=== PATIENT | female | born 1985 | race American Indian/Alaskan Native ===

== ENCOUNTER 2016-11-20 02:58 | Emergency (ER) | payer MEDICAID, OTHER ==
[2016-11-20 03:12] VITALS: BP 129/87; PULSE 83; RESP 20; TEMP 97.8; O2SAT 97
--- NOTE | 2016-11-20 03:38 | C.PDOC ---
History Of Present Illness 31 year old female presents to the ED with complaints of toothache in the right upper gum region and facial swelling for a "few days." Patient states she was schedule for a dental workup a few years ago but has been too afraid to go. She notes she has taken advil with some relief and denies trauma or fever. Time Seen by Provider: 11/20/16 03:27 Chief Complaint (Nursing): Dental Pain History Per: Patient History/Exam Limitations: no limitations Onset/Duration Of Symptoms: Days Current Symptoms Are (Timing): Still Present Severity: Mild Quality: Positive for: Aching Recent travel outside of the [place]: No Past Medical History Reviewed: Historical Data, Nursing Documentation, Vital Signs Vital Signs: Last Vital Signs Temp 97.8 F 11/20/16 03:09 Pulse 83 11/20/16 03:09 Resp 20 11/20/16 03:09 BP 129/87 11/20/16 03:09 Pulse Ox 97 11/20/16 05:42 - Medical History PMH: Bronchitis Family History: States: Unknown Family Hx - Social History Hx Tobacco Use: No Hx Alcohol Use: No Hx Substance Use: No - Immunization History Hx Tetanus Toxoid Vaccination: No Hx Influenza Vaccination: No Hx Pneumococcal Vaccination: No Review Of Systems Constitutional: Negative for: Fever ENT: Positive for: Other (toothache in right upper gum with facial swelling ). Negative for: Mouth Swelling, Throat Pain Musculoskeletal: Negative for: Neck Pain Neurological: Negative for: Headache Physical Exam - Physical Exam Appears: Non-toxic, No Acute Distress Skin: Warm, Dry Head: Atraumatic, Other (minimal right facial swelling in maxillary area ) Eye(s): bilateral: Normal Inspection, PERRL, EOMI Oral Mucosa: Moist, No Drooling, No Trismus Tongue: Normal Appearing, No Swelling, No Lesions, No Bite, No Fissured Lips: Normal Appearing, No Swelling, No Abrasion, No Lesions, No Erythema Teeth: Caries (moderate caries to lingual aspect of right upper molars, to buccal aspect of right premolar), No Edentulous, Tender To Palpation (right upper teeth), No Loose Gingiva: Erythema (to right upper gum ), Swelling (to right upper gum), No Abscess, Other (dental erosion to right upper pre-molar ) Throat: Normal, No Erythema Neck: Normal, Supple Neurological/Psych: Oriented x3 ED Course And Treatment O2 Sat by Pulse Oximetry: 97 (room air ) Medical Decision Making Medical Decision Making: Pt refused pain medications and understand to follow up with dentist- Pt agrees with plan and return precautions discussed Disposition Counseled Patient/Family Regarding: Diagnosis, Need For Followup, Rx Given - Disposition Referrals: Dental clinic, private or [facility] [Other] Disposition: HOME/ ROUTINE Disposition Time: 03:36 Condition: STABLE Additional Instructions: Please follow up with a dentist Take meds as directed Return to ER if worse Prescriptions: Ibuprofen [Motrin Tab] 800 mg PO QID #30 tab Penicillin VK [Pen-Vee K] 2 tab PO BID #28 tab Instructions: Dental Caries (ED), Gingivitis (ED) - Clinical Impression Clinical Impression: Dental caries, Gingivitis - Scribe Statement The provider has reviewed the documentation as recorded by the Sylvesteribduncan Andrews All medical record entries made by the Sylvesteribduncan were at my direction and personally dictated by me. I have reviewed the chart and agree that the record accurately reflects my personal performance of the history, physical exam, medical decision making, and the department course for this patient. I have also personally directed, reviewed, and agree with the discharge instructions and disposition.
== END 2016-11-20 03:42 | disposition home or self-care (01) ==
LOC: C.ER 02:58
DX: K02.9 Dental caries, unspecified (principal); K05.10 Chronic gingivitis, plaque induced

== ENCOUNTER 2017-05-18 02:12 | Emergency (ER) | payer OTHER ==
[2017-05-18 02:27] VITALS: RESP 20; TEMP 98; O2SAT 98
--- NOTE | 2017-05-18 02:55 | C.PDOC ---
History Of Present Illness 31 year old female presents to the ER with a complaint of 3 itching lesions to the lower back that have become painful today, associated with pruritus. Denies fever.These lesions are not tender or painful. She has never had anything similar. Patient has no PMHx expcet anxiety disorder, surgical Hx, known allergies, or Hx of smoking. Chief Complaint (Nursing): Abnormal Skin Integrity History Per: Patient History/Exam Limitations: no limitations Onset/Duration Of Symptoms: Days Current Symptoms Are (Timing): Still Present Location Of Injury: Posterior: Back Quality Of Symptoms: Painful, Itching Severity: Mild Pain Scale Rating Of: 0 Recent travel outside of the [place]: No Additional History Per: Patient Past Medical History Reviewed: Historical Data, Nursing Documentation, Vital Signs Vital Signs: Last Vital Signs Temp 98 F 05/18/17 02:23 Pulse 83 05/18/17 02:23 Resp 20 05/18/17 02:23 BP 135/97 H 05/18/17 02:23 Pulse Ox 98 05/18/17 03:40 - Medical History PMH: Anxiety, Bronchitis Surgical History: No Surg Hx Family History: States: Unknown Family Hx - Social History Hx Tobacco Use: No Hx Alcohol Use: No Hx Substance Use: No - Immunization History Hx Tetanus Toxoid Vaccination: No Hx Influenza Vaccination: No Hx Pneumococcal Vaccination: No Review Of Systems Constitutional: Negative for: Fever, Chills Eyes: Positive for: Conjunctivae Inflammation, Redness. Negative for: Pain ENT: Negative for: Ear Pain Cardiovascular: Negative for: Chest Pain, Paroxysmal Noc. Dyspnea, Edema, Light Headedness Respiratory: Negative for: Cough, Shortness of Breath, SOB with Excertion, Pleuritic Pain, Wheezing Gastrointestinal: Negative for: Vomiting, Abdominal Pain, Constipation Genitourinary: Negative for: Dysuria Musculoskeletal: Negative for: Neck Pain, Shoulder Pain Skin: Positive for: Lesions Neurological: Negative for: Weakness Psych: Positive for: Anxiety Physical Exam - Physical Exam Appears: Non-toxic, No Acute Distress Skin: Warm, Dry, Other (3 nonblanching maculopapular plaques) Head: Atraumatic, Normacephalic Eye(s): bilateral: Normal Inspection Nose: Normal Oral Mucosa: Moist Tongue: Normal Appearing Lips: Normal Appearing Teeth: Normal Dentition Gingiva: Normal Appearing Throat: Normal Neck: Normal Lymphatic: Normal Exam Chest: Symmetrical, No Tenderness Cardiovascular: Rhythm Regular Respiratory: Normal Breath Sounds, No Rales, No Rhonchi, No Wheezing Gastrointestinal/Abdominal: Soft, No Tenderness Back: No Paraspinal Tenderness Extremity: Normal ROM Neurological/Psych: Oriented x3, Normal Speech Gait: Steady ED Course And Treatment O2 Sat by Pulse Oximetry: 98 (Room air) Pulse Ox Interpretation: Normal Medical Decision Making Medical Decision Making: Benadryl administered. Patient instructed to follow up with PMD for further evaluation.Does not appear tyo be fundal/ not classic for ringworm. First days of plaques. Pt councele to see her PMD. And to return if the lesions worsen. Disposition - Disposition Referrals: [facility] [facility] [Outside] [facility] [place] [Outside] Disposition: HOME/ ROUTINE Disposition Time: 04:01 Condition: STABLE Additional Instructions: return if symtpoms worsen Prescriptions: DiphenhydrAMINE [Benadryl] 25 mg PO Q6 PRN 5 Days #15 cap PRN Reason: Allergy Symptoms Instructions: Acute Rash (ED), Viral Exanthem (ED), Dermatitis (ED) Forms: [employer] (Czech) - Clinical Impression Clinical Impression: Skin lesion - Scribe Statement The provider has reviewed the documentation as recorded by the Scribduncan Curtis All medical record entries made by the Scribe were at my direction and personally dictated by me. I have reviewed the chart and agree that the record accurately reflects my personal performance of the history, physical exam, medical decision making, and the department course for this patient. I have also personally directed, reviewed, and agree with the discharge instructions and disposition.
[2017-05-18 04:11] VITALS: BP 134/88; PULSE 84
== END 2017-05-18 04:09 | disposition home or self-care (01) ==
LOC: C.ER 02:12
DX: L98.8 Other specified disorders of the skin and subcutaneous tissue (principal)

== ENCOUNTER 2018-04-25 16:20 | Emergency (ER) | payer MEDICAID, OTHER ==
--- NOTE | 2018-04-25 17:16 | C.PDOC ---
History Of Present Illness 32 y/o female presents to the ED complaining of chest tightness and gas since yesterday. Associated with slight difficulty breathing, though patient denies feeling short of breath. She notes that she was diagnosed with pneumonia last winter, prompting concern. Patient reports after drinking tea, symptoms improved. Otherwise she denies any palpitations, dizziness, abdominal pain, back pain, nausea, vomiting, lightheadedness, fever, chills, or night sweats. Time Seen by Provider: 04/25/18 17:16 Chief Complaint (Nursing): Chest Pain History Per: Patient History/Exam Limitations: no limitations Onset/Duration Of Symptoms: Days (x2), Intermittent Episodes Current Symptoms Are (Timing): Still Present Quality: Dull, Other (Gas) Past Medical History Reviewed: Historical Data, Nursing Documentation, Vital Signs - Medical History PMH: Anxiety, Bronchitis Family History: States: Unknown Family Hx - Social History Hx Tobacco Use: No Hx Alcohol Use: No Hx Substance Use: No - Immunization History Hx Tetanus Toxoid Vaccination: No Hx Influenza Vaccination: No Hx Pneumococcal Vaccination: No Review Of Systems Constitutional: Negative for: Fever, Chills, Sweats Eyes: Negative for: Vision Change ENT: Negative for: Ear Pain Cardiovascular: Positive for: Chest Pain (associated with gas). Negative for: Palpitations, Light Headedness Respiratory: Negative for: Shortness of Breath, Wheezing Gastrointestinal: Negative for: Nausea, Vomiting, Abdominal Pain, Constipation Genitourinary: Negative for: Dysuria, Hematuria Musculoskeletal: Negative for: Neck Pain, Back Pain Neurological: Negative for: Weakness, Headache, Dizziness Physical Exam - Physical Exam Appears: Non-toxic, No Acute Distress Skin: Warm, Dry Head: Normacephalic Eye(s): bilateral: Normal Inspection, PERRL, EOMI Oral Mucosa: Moist Neck: Trachea Midline, Supple, Other (No meningeal signs- negative kernig's and brudzinskis) Chest: Symmetrical, No Deformity, No Tenderness Cardiovascular: Rhythm Regular, Other (No rub) Respiratory: No Rales, No Rhonchi, No Wheezing Gastrointestinal/Abdominal: Soft, No Tenderness, No Distention Extremity: Bilateral: Normal Color And Temperature, Normal ROM Pulses: Left Dorsalis Pedis: Normal, Right Dorsalis Pedis: Normal Neurological/Psych: Oriented x3, Normal Speech ED Course And Treatment - Laboratory Results Result Diagrams: 04/25/18 17:49 04/25/18 17:49 Medical Decision Making Medical Decision Makin32 y/o F p/w chest tightness and gas since yesterday, denies hx of HTN, CAD, HLD, or DM. + Family hx of acute IL in the patient's sister at age 52. No associated SOB or palpitations. Low risk CP given age, ekg, pmhx, story. pending trop. Initial Plan: --EKG --CMP --Troponin I --CBC --Chest x-ray --Tylenol 650 mg PO Progress: EK bpm, NSR, no STEMI 1920 cxr labs, all unremarkable clear for d/c home pt not improvement of pain, in NAD, agreeable with plan Disposition - Disposition Referrals: Delgado Ken MD [Staff Provider] - [facility] [Outside] [facility] at [facility] [Outside] Disposition: HOME/ ROUTINE Disposition Time: 19:21 Condition: GOOD Additional Instructions: IGGY VERONICA, thank you for letting us take care of you today. Your provider was Chris Lawler and you were treated for CHEST PAIN. The emergency medical care you received today was directed at your acute symptoms. If you were prescribed any medication, please fill it and take as directed. It may take several days for your symptoms to resolve. Return to the Emergency Department if your symptoms worsen, do not improve, or if you have any other problems. Please contact your doctor or call one of the physicians/clinics you have been referred to that are listed on the Patient Visit Information form that is included in your discharge packet. Bring any paperwork you were given at discharge with you along with any medications you are taking to your follow up visit. Our treatment cannot replace ongoing medical care by a primary care provider outside of the emergency department. Thank you for allowing the [facility] team to be part of your care today. If you had an X-Ray or CT scan: A Radiologist will review the ED reading if any change in treatment is needed we will contact you. If you had a blood, urine, or wound culture: It will take several days for the results, if any change in treatment is needed we will contact you. If you had an STI test: It will take 48 hours for the results. Please call after 1 week if you have not heard back. Instructions: Chest Pain Forms: [facility] (Senegalese) - Clinical Impression Clinical Impression: Chest pain - Scribe Statement The provider has reviewed the documentation as recorded by the Sylvesteribe Karma Magallanes Provider Attestation: All medical record entries made by the Sylvesteribe were at my direction and personally dictated by me. I have reviewed the chart and agree that the record accurately reflects my personal performance of the history, physical exam, medical decision making, and the department course for this patient. I have also personally directed, reviewed, and agree with the discharge instructions and disposition.
[2018-04-25 17:59] LABS: BASO % 0.4 % (0.0-2.0); EOS # 0.1 K/uL (0.0-0.7); HEMOGLOBIN 13.1 g/dL (11.0-16.0); LYMPH # 1.9 K/uL (1.0-4.3); LYMPH % 23.1 % (20.0-40.0); MEAN CELL VOLUME 88.3 fL (81.0-99.0); MEAN CORPUSCULAR HEMOGLOBIN 29.2 pg (27.0-31.0); MEAN CORPUSCULAR HGB CONC 33.1 g/dL (33.0-37.0); MEAN PLATELET VOLUME 7.8 fL (7.2-11.7); MONO # 0.4 K/uL (0.0-0.8); MONO % 4.3 % (0.0-10.0); NEUT # 5.8 K/uL (1.8-7.0); NEUT % 71.2 % (50.0-75.0); RBC 4.49 Mil/uL (3.80-5.20); RED CELL DISTRIBUTION WIDTH 14.1 % (11.5-14.5); WHITE BLOOD COUNT 8.2 K/uL (4.8-10.8)
[2018-04-25 18:11] LABS: ALB/GLOB RATIO 1.1 (1.0-2.1); ALBUMIN 3.9 g/dL (3.5-5.0); ALT/SGPT 19 U/L (9-52); AST/SGOT 22 U/L (14-36); BLOOD UREA NITROGEN 11 mg/dL (7-17); CALCIUM 8.8 mg/dl (8.6-10.4); GFR NON-AFRICAN AMERICAN > 60
--- NOTE | 2018-04-25 18:41 | RAD ---
HISTORY: cp COMPARISON: None available. TECHNIQUE: Chest PA and lateral FINDINGS: LUNGS: No focal consolidation. Please note that chest x-ray has limited sensitivity for the detection of pulmonary masses. PLEURA: No significant pleural effusion identified. No definite pneumothorax . CARDIOVASCULAR: Heart size appears within normal limits. No atherosclerotic calcification present. OSSEOUS STRUCTURES: No acute osseous abnormality identified. VISUALIZED UPPER ABDOMEN: Unremarkable. OTHER FINDINGS: None. IMPRESSION: No focal consolidation.
[2018-04-25 19:21] VITALS: BP 119/76; PULSE 90; RESP 16; TEMP 98.6; O2SAT 96
--- NOTE | 2018-04-26 23:42 | CARD ---
APPROVED REPORT Date of service: 04/25/2018 EKG Measurement Heart [id number] <Conclusion> Normal sinus rhythm Possible Left atrial enlargement Borderline ECG
== END 2018-04-25 19:52 | disposition home or self-care (01) ==
LOC: C.ER 16:20
DX: R07.9 Chest pain, unspecified (principal)

== ENCOUNTER 2018-09-21 17:32 | Emergency (ER) | payer MEDICAID, OTHER ==
[2018-09-21 17:47] VITALS: PULSE 82
--- NOTE | 2018-09-21 18:05 | C.PDOC ---
History Of Present Illness 33 y/o female with no PMHx presents to the ED complaining of seasonal allergies for the last 3 days. States she lost her voice, which then improved slightly today. She complains of nasal congestion and rhinorrhea with yellow discharge. Denies any vomiting, diarrhea, chest pain, or SOB. Time Seen by Provider: 09/21/18 17:51 Chief Complaint (Nursing): Cough, Cold, Congestion History Per: Patient History/Exam Limitations: no limitations Onset/Duration Of Symptoms: Days (x 3) Current Symptoms Are (Timing): Still Present Associated Symptoms: Sinus Drainage, Nasal Congestion Past Medical History Reviewed: Historical Data, Nursing Documentation, Vital Signs Vital Signs: Last Vital Signs Temp 98.9 F 09/21/18 17:43 Pulse 82 09/21/18 17:43 Resp 20 09/21/18 17:43 BP 157/90 H 09/21/18 17:43 Pulse Ox 96 09/21/18 17:43 - Medical History PMH: Anxiety, Bronchitis Family History: States: Unknown Family Hx - Social History Hx Tobacco Use: No Hx Alcohol Use: No Hx Substance Use: No - Immunization History Hx Tetanus Toxoid Vaccination: No Hx Influenza Vaccination: No Hx Pneumococcal Vaccination: No Review Of Systems Except As Marked, All Systems Reviewed And Found Negative. Constitutional: Negative for: Fever ENT: Positive for: Nose Discharge, Nose Congestion Cardiovascular: Negative for: Chest Pain Respiratory: Negative for: Shortness of Breath Gastrointestinal: Negative for: Vomiting, Abdominal Pain, Diarrhea Neurological: Negative for: Headache, Dizziness Physical Exam - Physical Exam Appears: Well, Non-toxic, No Acute Distress Skin: Warm, Dry Head: Atraumatic, Normacephalic, Other (No facial or sinus tenderness) Eye(s): bilateral: Normal Inspection, PERRL, EOMI Nose: Discharge (+ rhinorrhea) Oral Mucosa: Moist Throat: Normal (Pharynx is clear, uvula midline), No Erythema, No Exudate Neck: Normal ROM, Supple Chest: Symmetrical Cardiovascular: Rhythm Regular, No Murmur Respiratory: Normal Breath Sounds, No Accessory Muscle Use, No Rales, No Rhonchi, No Wheezing Gastrointestinal/Abdominal: Soft, No Tenderness, No Distention Extremity: Bilateral: Atraumatic, Normal Color And Temperature, Other (No pitting edema) Neurological/Psych: Oriented x3, Normal Speech ED Course And Treatment O2 Sat by Pulse Oximetry: 96 (RA) Pulse Ox Interpretation: Normal Medical Decision Making Medical Decision Making: Impression: Seasonal allergies, Rhinitis Plan: - 30 mg PO Sudafed - 600 mg PO Motrin Will discharge patient home with Rx for flonase and motrin. Disposition Counseled Patient/Family Regarding: Diagnosis, Need For Followup, Rx Given - Disposition Referrals: [facility] at [facility] [place]Outside] [facility] at [facility] [Outside] [facility] at [place] [Outside] Disposition: HOME/ ROUTINE Disposition Time: 18:18 Condition: GOOD Additional Instructions: take your meds as directed and follow up with your pcp. Prescriptions: Amoxicillin/Clavulanate [Augmentin 875 MG-125 MG] 1 tab PO Q12 #14 tab Fluticasone Propionate [Flonase Allergy Relief] 9.9 ml NS Q12 #100 spray.susp Ibuprofen [Motrin] 600 mg PO Q6 #20 tab Instructions: Sinusitis in Adults Forms: [facility] (Khmer) - Clinical Impression Clinical Impression: Sinusitis - Scribe Statement The provider has reviewed the documentation as recorded by the Bryant Magallanes Provider Attestation: All medical record entries made by the Sylvesteribduncan were at my direction and p ersonally dictated by me. I have reviewed the chart and agree that the record accurately reflects my personal performance of the history, physical exam, medical decision making, and the department course for this patient. I have also personally directed, reviewed, and agree with the discharge instructions and disposition.
[2018-09-21 18:09] VITALS: BP 130/90; RESP 19; TEMP 98.5
[2018-09-21 18:23] VITALS: O2SAT 96
== END 2018-09-21 18:28 | disposition home or self-care (01) ==
LOC: C.ER 17:32
DX: J32.9 Chronic sinusitis, unspecified (principal)

== ENCOUNTER 2018-10-07 23:41 | Emergency (ER) | payer MEDICAID, OTHER ==
[2018-10-07 23:55] VITALS: BP 113/80; PULSE 77; RESP 20; TEMP 98.8; O2SAT 100
--- NOTE | 2018-10-08 00:16 | C.PDOC ---
History Of Present Illness 33-year-old female presents to the emergency department with complaints of an on and off cough for the last two days as well as feeling like she is losing her voice. Patient states that she has been battling a URI for the last two weeks and admits to taking antibiotics. Patient currently complains of dry cough and dry throat, states that she took Claritin at home. Time Seen by Provider: 10/07/18 23:58 Chief Complaint (Nursing): ENT Problem History Per: Patient History/Exam Limitations: None Onset/Duration Of Symptoms: Days (2), Intermittent Episodes Current Symptoms Are (Timing): Still Present Quality (Mouth/Throat): Other (dry) Symptoms Have Been: Episodic Past Medical History Reviewed: Historical Data, Nursing Documentation, Vital Signs Vital Signs: Last Vital Signs Temp 98.8 F 10/07/18 23:53 Pulse 77 10/07/18 23:53 Resp 20 10/07/18 23:53 BP 113/80 10/07/18 23:53 Pulse Ox 100 10/07/18 23:53 Primary Care Provider: Non [facility] Provider, - Medical History PMH: Anxiety, Bronchitis Surgical History: No Surg Hx Family History: States: No Known Family Hx - Social History Hx Tobacco Use: No Hx Alcohol Use: No Hx Substance Use: No - Immunization History Hx Tetanus Toxoid Vaccination: No Hx Influenza Vaccination: No Hx Pneumococcal Vaccination: No Review Of Systems Constitutional: Negative for: Fever, Chills, Weakness ENT: Positive for: Other (dry throat). Negative for: Nose Discharge, Nose Congestion, Throat Pain Cardiovascular: Negative for: Chest Pain Respiratory: Positive for: Cough. Negative for: Shortness of Breath, Sputum Gastrointestinal: Negative for: Nausea, Vomiting, Diarrhea Genitourinary: Negative for: Dysuria, Frequency, Hematuria Skin: Negative for: Rash Neurological: Negative for: Weakness, Numbness Physical Exam - Physical Exam Additional Physical Exam Comments: General: Well, non-toxic, NAD Skin: normal, warm, no rash Head: Normocephalic, Atraumatic Eyes: Normal Inspection (no scleral icterus), PERRL, EOMI Ears: Normal (no drainage) Nose: normal Throat: Normal (no swelling or injection), No Exudate, Other (Airway patent) Mucosa moist Neck: supple, normal ROM Chest: Symmetrical Heart: Rhythm Regular, No Murmur Respiratory: No accessory muscle use, other (Normal inspiratory effort), clear to auscultation bilaterally, no wheezing, rales, rhonchi. Abdomen: Soft, Non-distended Back: Ambulating with steady upright gait Extremities: Atraumatic, Normal ROM Radial pulses 2+ Neuro: Oriented x3, Cranial nerves grossly intact ED Course And Treatment O2 Sat by Pulse Oximetry: 100 (RA) Pulse Ox Interpretation: Normal Medical Decision Making Medical Decision Making: Patient treated for bronchitis. Disposition Counseled Patient/Family Regarding: Diagnosis, Need For Followup - Disposition Disposition: HOME/ ROUTINE Disposition Time: 00:15 Condition: STABLE Prescriptions: Albuterol HFA [Ventolin HFA 90 mcg/actuation (8 g)] 2 puff IH [id number] #1 inhaler Cetirizine HCl/Pseudoephedrine [Zyrtec-D Tablet] 1 each PO DAILY #14 tab.er.12h Instructions: Acute Bronchitis, Adult (DC), Laryngitis (DC) Forms: [employer] (Pakistani) - Clinical Impression Clinical Impression: Bronchitis, Laryngitis - PA / PALLETIZER / Resident Statement MD/DO has reviewed & agrees with the documentation as recorded. - Scribe Statement The provider has reviewed the documentation as recorded by the Scribe (Jeff chen) All medical record entries made by the Scribe were at my direction and personally dictated by me. I have reviewed the chart and agree that the record accurately reflects my personal performance of the history, physical exam, medical decision making, and the department course for this patient. I have also personally directed, reviewed, and agree with the discharge instructions and disposition.
== END 2018-10-08 00:22 | disposition home or self-care (01) ==
LOC: C.ER 23:41
DX: J40 Bronchitis, not specified as acute or chronic (principal); J04.0 Acute laryngitis